=== PATIENT | male | born 1955 | race Hispanic/Latino ===

== ENCOUNTER → 2017-06-25 | Outpatient (CLI) | payer SELFPAY | END | disposition home or self-care (01) | LOC: YCFC.O 08:01 | PROVIDERS: ATTEND Nurse Practitioner Family | DX: E11.9 Type 2 diabetes mellitus without complications (principal); E78.2 Mixed hyperlipidemia ==

== ENCOUNTER → 2017-12-24 | Outpatient (CLI) | payer OTHER | LOC: YCFC.O 08:17 | PROVIDERS: ATTEND Nurse Practitioner Family | DX: E78.00 Pure hypercholesterolemia, unspecified (principal); E11.9 Type 2 diabetes mellitus without complications; I10 Essential (primary) hypertension ==

== ENCOUNTER → 2018-04-19 | Outpatient (CLI) | payer OTHER | LOC: YCFC.O 07:29 | PROVIDERS: ATTEND Nurse Practitioner Family | DX: E11.610 Type 2 diabetes mellitus with diabetic neuropathic arthropathy (principal) ==

== ENCOUNTER → 2018-08-08 | Outpatient (CLI) | payer OTHER | LOC: LAB.O 08:11 | PROVIDERS: ATTEND Nurse Practitioner Family | DX: E11.9 Type 2 diabetes mellitus without complications (principal) ==

== ENCOUNTER → 2019-03-02 | Outpatient (CLI) | payer OTHER | LOC: LAB.O 07:10 | PROVIDERS: ATTEND Nurse Practitioner Family | DX: E11.65 Type 2 diabetes mellitus with hyperglycemia (principal); E78.2 Mixed hyperlipidemia; I10 Essential (primary) hypertension ==

== ENCOUNTER 2019-08-01 09:39 | Observation (INO) | payer OTHER, SELFPAY ==
[2019-08-01] MEDS ORDERED: ONDANSETRON ODT 8 MG TAB SL ONE (10:15)
[2019-08-01] MEDS ORDERED: MORPHINE SULFATE INJ 10 MG/ML VIAL IM ONE ×2 (10:15→10:23)
--- NOTE | 2019-08-01 10:54 | RAD ---
EXAM DESCRIPTION: Ankle,Left 3 Views CLINICAL HISTORY: 64 years, Male, Fall/twisted COMPARISON: None. TECHNIQUE: AP/lateral/oblique of the left ankle FINDINGS: Comminuted intra-articular fracture dislocation of the tibiotalar joint is present with fractures through the posterior tibial plafond and mild displacement of the posterior malleolus fracture fragment. Comminuted fracture of the medial malleolus with central displacement of the distal fracture fragment while the majority/remainder of the distal tibia is dislocated medially. Mild comminuted, displaced fracture mid/distal fibular diaphysis with cortical overriding. Disruption of the distal tibiofibular syndesmosis with distal tibia-fibula joint space widening. Lateral talar dome bony contusion/osteochondral lesion. Moderate ankle joint effusion. The subtalar joint is grossly intact. IMPRESSION: 1. Left ankle pilon fracture and dislocation at the tibiotalar joint as above 2. Left mid/distal fibular diaphysis displaced fracture with disruption of the tibiofibular syndesmosis. 3. Moderate ankle joint effusion. Electronically signed by: Glenn Cervantes DO 08/01/2019 10:53 AM [facility]
--- NOTE | 2019-08-01 11:27 | ED.PDOC ---
History of Present Illness - General Chief Complaint: Lower Extremity Injury Stated Complaint: LEFT ANKLE PAIN POST FALL Time Seen by Provider: 08/01/19 10:14 Source: patient, RN notes reviewed, Vital Signs reviewed, family - daughter Exam Limitations: no limitations, other - History of Present Illness Initial Comments: patient is a 64-year-old male who was walking out of his house this morning and slipped and fell off of the steps. Patient complains of left ankle pain and swelling. Patient was unable to ambulate on the foot after the fall. Patient denies any loss of consciousness, no headache, no chest pain, shortness of breath, nausea, vomiting, diarrhea. She complains of some numbness in the foot. Occurred: just prior to arrival Pain - Lower Extremity: severe: Left Calf, Left Ankle Method of Injury: twisted - slip and fall Improving Factors: cold therapy, immobilization Worsening Factors: movement Allergies/Adverse Reactions: Allergies NO KNOWN ALLERGY Allergy (Verified 08/01/19 10:00) Home Medications: Ambulatory Orders Acetaminophen W/ Codeine [Tylenol W/ CODEINE #3] 1 ea PO Q4H #20 08/01/19 Glyburide 08/01/19 Review of Systems - Review of Systems Constitutional: States: no symptoms reported EENTM: States: no symptoms reported Respiratory: States: no symptoms reported Cardiology: States: no symptoms reported Gastrointestinal/Abdominal: States: no symptoms reported Genitourinary: States: no symptoms reported Musculoskeletal: States: see HPI, joint pain, joint swelling. Denies: back pain Skin: States: no symptoms reported Neurological: States: no symptoms reported Endocrine: States: no symptoms reported Hematologic/Lymphatic: States: no symptoms reported All other Systems: Reviewed and Negative Past Medical History (General) - Patient Medical History Hx Hypertension: Yes Hx Diabetes: Yes Hx Cancer: No Hx Hepatitis C: No Surgical History: no surgical history - Vaccination History Hx Tetanus, Diphtheria Vaccination: No Hx Influenza Vaccination: No Hx Pneumococcal Vaccination: No Immunizations Up to Date: No - Social History Hx Tobacco Use: No Hx Alcohol Use: No Hx Substance Use: No Hx Substance Use Treatment: No Hx Depression: No Family Medical History - Family History Mother Family History: Unknown Physical Exam - Physical Exam General Appearance: Alert, Anxious, Obvious distress, Well Developed, Well Groomed, Well Hydrated, Well Nourished Eyes, Ears, Nose, Throat: PERRL/EOMI, normal ENT inspection, pharynx normal Neck: non-tender, full range of motion, supple, normal inspection Cardiovascular/Respiratory: regular rate, rhythm, no M/R/G, normal peripheral pulses, no JVD, normal breath sounds, no respiratory distress Gastrointestinal/Abdominal: non-tender, no organomegaly, no hernia Back: normal inspection, no CVA tenderness, no vertebral tenderness Thigh/Hip: normal inspection, non-tender, no evidence of injury Leg: normal inspection, non-tender, no evidence of injury, normal ROM Knee: normal inspection, non-tender, no evidence of injury, normal ROM Ankle: bone tenderness, deformity, limited ROM, pain, soft tissue tenderness, swelling Foot: non-tender, no evidence of injury, normal ROM, other - Refill less than 2 seconds. DP pulses 2+. Neuro/Tendon: normal motor functions, responds to pain, sensory deficit - mild numbness to the bottom of the foot. Mental Status: alert, oriented x 3 Skin: normal color, warm/dry Progress - Progress Progress: Differential diagnosis: Fibular fracture, dislocation, trimalleolar fracture, Among others. 08/01/19 13:13 patient's ankle has been reduced. Skin is intact. The foot is slightly cool to the touch but he does have 2+ DP pulses. His Doppler of the DP pulse is triphasic phase waveform. Cap refill is less than 2 seconds. Some numbness along the dorsal surface of the foot, but there is no numbness across the top of the foot, any of the ankle or the posterior aspect of the calf. Patient's pain is well controlled. In long discussion with the orthopedic surgeon, Dr. Hutchins, and with review of the x-rays and all the findings as described above, decision was made for discharge home with follow-up in Dr. Hutchins's clinic for further evaluation and operative repair of the ankle. I discussed the plan of care with the patient and his [id number] and they voice understanding and agreement with the plan of care. Juwan Del Angel M.D. #[id number] - Results/Orders Results/Orders: EXAM DESCRIPTION: Ankle,Left 3 Views CLINICAL HISTORY: 64 years, Male, Fall/twisted COMPARISON: None. TECHNIQUE: AP/lateral/oblique of the left ankle FINDINGS: Comminuted intra-articular fracture dislocation of the tibiotalar joint is present with fractures through the posterior tibial plafond and mild displacement of the posterior malleolus fracture fragment. Comminuted fracture of the medial malleolus with central displacement of the distal fracture fragment while the majority/remainder of the distal tibia is dislocated medially. Mild comminuted, displaced fracture mid/distal fibular diaphysis with cortical overriding. Disruption of the distal tibiofibular syndesmosis with distal tibia-fibula joint space widening. Lateral talar dome bony contusion/osteochondral lesion. Moderate ankle joint effusion. The subtalar joint is grossly intact. IMPRESSION: 1. Left ankle pilon fracture and dislocation at the tibiotalar joint as above 2. Left mid/distal fibular diaphysis displaced fracture with disruption of the tibiofibular syndesmosis. 3. Moderate ankle joint effusion. Electronically signed by: Glenn Cervantes DO 08/01/2019 10:53 AM [employer] EXAM DESCRIPTION: Ankle,Left 3 Views CLINICAL HISTORY: 64 years Male, post reduction COMPARISON: Earlier today Findings: Five views/radiographs Redemonstrated, previously described left ankle pilon fracture and dislocation. Improved alignment of the transverse mid diaphyseal fibular fracture. There is one shaft width lateral displacement of the distal fracture fragment. Redemonstrated comminuted intra-articular distal tibial fracture, with improved alignment. There is persistent widening of the medial ankle mortise. Redemonstrated large posterior malleolar fracture fragment measures 3.2 cm. Medial malleolar fracture fragment measuring 1.4 cm. No new fracture identified. IMPRESSION: Improved alignment of the previously described left ankle fracture- dislocation. Electronically signed by: Silvano Walton MD 08/01/2019 11:47 AM 08/01/19 12:35 IV:Start .ONCE Laboratory Results - last 24 hr 08/01/19 08/01/19 08/01/19 11:18 12:48 12:48 WBC 12.0 H RBC 4.76 Hgb 13.7 L Hct 40.9 L MCV 85.9 MCH 28.7 MCHC 33.4 RDW 15.1 H Plt Count 228 MPV 9.0 Absolute Neuts (auto) 10.30 H Absolute Lymphs (auto) 0.80 L Absolute Monos (auto) 0.80 Absolute Eos (auto) 0.00 Absolute Basos (auto) 0.00 Neutrophils % 86.3 H Lymphocytes % 6.4 L Monocytes % 7.0 Eosinophils % 0.1 L Basophils % 0.2 Sodium 130 L Potassium 3.9 Chloride 100 L Carbon Dioxide 21 Anion Gap 12.9 BUN 18 Creatinine 0.64 BUN/Creatinine Ratio 28.1 H POC Glucose 198 H Random Glucose 205 H Serum Osmolality 268.6 L Calcium 9.1 Total Bilirubin 0.5 AST 23 ALT 16 Alkaline Phosphatase 64 Serum Total Protein 7.4 Albumin 4.3 Globulin 3.1 Albumin/Globulin Ratio 1.4 Lipase 45 Departure - Departure Clinical Impression: Fracture due to fall Closed fracture of ankle Qualifiers: Encounter type: initial encounter Laterality: left Qualified Code(s): S82.892A - Other fracture of left lower leg, initial encounter for closed fracture Trimalleolar fracture of left ankle Qualifiers: Encounter type: initial encounter Fracture type: closed Qualified Code(s): S82.852A - Displaced trimalleolar fracture of left lower leg, initial encounter for closed fracture Time of Disposition: 13:28 Disposition: Discharge to Home or Self Care Condition: Good Departure Forms: ED Discharge - Pt. Copy, Patient Portal Self Enrollment Instructions: Ankle Fracture (DC) Referrals: Uche Hutchins MD [Active Staff] - 1-2 Days Zakiya Garcia NP [Primary Care Provider] - 1-5 Days Prescriptions: Acetaminophen W/ Codeine [Tylenol W/ CODEINE #3] 1 ea PO Q4H #20 Home Medications: Ambulatory Orders Acetaminophen W/ Codeine [Tylenol W/ CODEINE #3] 1 ea PO Q4H #20 08/01/19 Glyburide 08/01/19 Additional Instructions: Keep ankle elevated above your heart. Do not walk on your foot.
--- NOTE | 2019-08-01 11:49 | RAD ---
EXAM DESCRIPTION: Ankle,Left 3 Views CLINICAL HISTORY: 64 years Male, post reduction COMPARISON: Earlier today Findings: Five views/radiographs Redemonstrated, previously described left ankle pilon fracture and dislocation. Improved alignment of the transverse mid diaphyseal fibular fracture. There is one shaft width lateral displacement of the distal fracture fragment. Redemonstrated comminuted intra-articular distal tibial fracture, with improved alignment. There is persistent widening of the medial ankle mortise. Redemonstrated large posterior malleolar fracture fragment measures 3.2 cm. Medial malleolar fracture fragment measuring 1.4 cm. No new fracture identified. IMPRESSION: Improved alignment of the previously described left ankle fracture-dislocation. Electronically signed by: Silvano Walton MD 08/01/2019 11:47 AM [facility]
--- NOTE | 2019-08-01 14:11 | HP ---
SUPERVISING PHYSICIAN: Agustin Salazar M.D. CHIEF COMPLAINT: Left ankle pain with fracture. HISTORY OF PRESENT ILLNESS: Mr. Iyer is a 64 year-old male that presented to the Emergency Room today after he had a same level fall while walking this morning. He slipped and fell down some steps. When he presented to the Emergency Room, he complained of some left ankle pain with swelling and was able to ambulate after the fall. He denied any loss of consciousness, headaches, chest pain, shortness of breath, nausea, vomiting or diarrhea. He did have initially some numbness in the foot on arrival. X-rays of the tibia, fibula and ankle revealed a left ankle fracture with dislocation. Dr. Hutchins, orthopedic surgeon, was consulted and requested the patient be put in a brace, and admitted for pain control and precautions to prevent further swelling with anticipation of doing open reduction and internal fixation of the ankle in the morning. He was placed in observation in stable condition. PAST MEDICAL HISTORY: 1. Hypertension. 2. Diabetes mellitus on oral therapy. 3. Hypercholesterolemia. PAST SURGICAL HISTORY: None listed. HOME MEDICATIONS: 1. Glyburide 5 mg b.i.d. 2. Lisinopril 20 mg daily. 3. Lovastatin 20 mg daily. 4. Metformin 1,000 mg daily. 5. Terbinafine 250 mg daily. ALLERGIES: NO KNOWN DRUG ALLERGIES. FAMILY HISTORY: Mother at age 60 from colon cancer. Father still alive with hypertension. He has multiple brothers and sisters that all have diabetes. 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 He lives in [place]. He is . He has 5 children. He has never smoked. Does not drink alcohol or use illicit drugs. REVIEW OF SYSTEMS: CONSTITUTIONAL: Denies any fevers, chills, general malaise, body aches. HEENT: Denies any ear aches, sore throat, nasal congestion, headaches, vision changes. RESPIRATORY: Denies any coughing, wheezing or shortness of breath. CARDIOVASCULAR: Denies any chest pains, palpitations or syncopal episodes. GASTROINTESTINAL: Denies any nausea, vomiting, diarrhea, constipation or abdominal pains. GENITOURINARY: Denies any dysuria, hematuria or polyuria. MUSCULOSKELETAL: As noted in History of Present Illness. NEUROLOGIC: Denies any headaches, vision changes, syncopal episodes, ataxia, seizures or other focal neurological deficits. PHYSICAL EXAMINATION: VITAL SIGNS: Temperature 97, pulse 68, blood pressure 124/75, respirations 18, satting 98% on room air. Admission weight is 74 kg. GENERAL: The patient is resting comfortably. Appears to be in no acute distress. He is alert. HEENT: Tympanic membranes are clear bilaterally. Oropharynx is pink and moist without any lesions. NECK: Supple, non-tender. Full range of motion. No jugular venous distention. CHEST: Lungs are clear to auscultation bilaterally without any rhonchi, wheezing or rales. CARDIOVASCULAR: Regular rate and rhythm without appreciable murmurs, gallops, or rubs. ABDOMEN: Obese but soft, non-tender. Positive bowel sounds. EXTREMITIES: Left lower extremity has a posterior brace and Reinaldo bandage in place. SKIN: Warm, pink and dry. Pulses were faint but palpable. No reported paresthesias. NEUROLOGIC: Cranial nerves II-XII are grossly intact. Facial features were symmetrical. He is alert and oriented times three. LABORATORY: White count 12,000, hemoglobin 13.7, hematocrit 40.9, platelet count 228,000. Differential does show a left shift. Chemistries show a mildly low sodium at 130 with potassium 3.9, anion gap and BUN are normal, creatinine 0.64. Blood sugars were initially 198. Liver functions were all within normal limits. Lipase was normal at 45. Urinalysis was pending. RADIOLOGY: Ankle x-ray and tibia and fibula x-rays showed a left ankle pilon fracture and dislocation at the tibiotalar joint with a left mid distal fibular diaphysis displaced fracture with disruption of the tibiofibular syndesmosis and moderate ankle joint effusion. ASSESSMENT: 1. Bimalleolar fracture and left fibular fracture status post same level fall. 2. Hypertension. 3. Diabetes mellitus. 4. Hypercholesterolemia. PLAN: Mr. Iyer is going to be placed in observation for an orthopedic surgical consultation with planned open reduction and internal fixation of the fractures of the left ankle and tibia in the morning. Will continue preoperative workup. He has been seen by Anesthesia as well. Will have him on insulin sliding scale per protocol. His home medications in he computer are still awaiting verification and update, listed above is from a clinic chart. He will be on deep venous thrombosis prophylaxis postoperatively as per protocol. He will be on bedrest tonight to keep the left leg elevated to decrease swelling in efforts to be able to do surgery in the morning, however if he is not able to do surgery due to the fact that the swelling has increased, he may need to discharge home and return back for further management, but will reassess in the morning with Dr. Hutchins and make ultimate decision on surgical intervention. Until we can transition him to outpatient management will continue to monitor and treat as needed. #[id number] [facility]
[2019-08-01] MEDS ORDERED: SODIUM CHLORIDE 0.9% (FLUSH) 10 ML SYG IV PRN (14:38)
[2019-08-01] MEDS ORDERED: ONDANSETRON INJ 4 MG/2 ML VIAL IV PRN (14:38)
[2019-08-01] MEDS ORDERED: ALUM & MAG HYDROX-SIMETHICONE 30 ML UD PO PRN (14:38)
[2019-08-01] MEDS ORDERED: MAGNESIUM HYDROXIDE 30 ML UD PO PRN (14:38)
[2019-08-01] MEDS ORDERED: ACETAMINOPHEN 325 MG TAB PO PRN (14:38)
[2019-08-01] MEDS ORDERED: GLUCAGON INJ 1 MG VIAL SUBCU PRN (14:39)
[2019-08-01] MEDS ORDERED: DEXTROSE 10% 500ML IVPB PRN (14:39)
[2019-08-01] MEDS ORDERED: IV SET AND CAP CHANGE INJ INJ SCH (15:00)
[2019-08-01] MEDS: SODIUM CHLORIDE 0.9% 1000ML 1,000 ML IVS PRN (15:05)
[2019-08-01] MEDS: INSULIN LISPRO 100 UNITS/ML PEN SUBCU SCH ×2 (16:56→20:50)
[2019-08-01] MEDS: MORPHINE SULFATE INJ 10 MG/ML VIAL IV PRN ×2 (19:16→23:09)
--- NOTE | 2019-08-01 20:48 | CT ---
EXAM DESCRIPTION: CT Lower Extremity CLINICAL HISTORY: 64 years Male fracture to left ankle TECHNIQUE: Axial noncontrast images acquired through the left ankle. Coronal and sagittal reformatted images also provided. This CT exam was performed according to our departmental dose-optimization program, which includes one or more of the following dose reduction techniques: automated exposure control, adjustment of the mA and/or kV according to patient size, and/or use of iterative reconstruction technique. COMPARISON: Correlation is made with the radiographs obtained earlier the same day. FINDINGS: Again seen is an acute fracture of the left mid fibular diaphysis with less than one shaft-width of anterior and lateral displacement. There is an acute fracture through the base of the medial malleolus with 8 mm of lateral displacement. The distal fracture fragment continues to articulate with the talar dome, which articulates with the lateral malleolus. The tibial plafond is displaced medially relative to the talus. There is an acute, slightly comminuted, intra-articular posterior malleolar fracture demonstrating 9 mm of lateral displacement and 7 mm of posterior displacement. There are a few tiny ossific intra-articular fracture fragments in the ankle joint. There is a well-corticated osteophyte along the anterior margin of the tibial plafond. There is no complete ankle dislocation. No other visualized fracture. There are mild focal degenerative changes at the medial and lateral corners of the talar dome. Diffuse surrounding soft tissue swelling without soft tissue gas or foreign body. IMPRESSION: Acute, displaced, medial and posterior malleolar fractures on the left. Acute fracture of the left mid fibular diaphysis. Lateral subluxation at the ankle joint without complete dislocation. Tiny ossific intra-articular bodies. Electronically signed by: Saba Ashley MD 08/01/2019 8:47 PM [facility]
[2019-08-02] MEDS: SODIUM CHLORIDE 0.9% 1000ML 1,000 ML IVS PRN (02:01)
[2019-08-02] MEDS ORDERED: raNITIdine HCL INJ 25 MG/ML VIAL ONE (07:00)
[2019-08-02] MEDS ORDERED: LIDOCAINE 1% 10 ML VIAL INJ ONE (07:00)
[2019-08-02] MEDS ORDERED: PROPOFOL 200 MG/20 ML VIAL IV ONE (07:00)
[2019-08-02] MEDS ORDERED: DEXAMETHASONE INJ 10 MG/ML VIAL ONE (07:00)
[2019-08-02] MEDS: INSULIN LISPRO 100 UNITS/ML PEN SUBCU SCH ×2 (07:45→12:40)
[2019-08-02] MEDS: MORPHINE SULFATE INJ 10 MG/ML VIAL IV PRN (08:42)
[2019-08-02] MEDS ORDERED: SODIUM CHLORIDE 0.9% 250ML 250 ML ONE (09:00)
[2019-08-02] MEDS ORDERED: VANCOMYCIN HCL INJ 1,000 MG VIAL IVPB ONE ×3 (09:01→09:50)
[2019-08-02] MEDS ORDERED: SODIUM CHLORIDE 0.9% 50ML 50 ML ONE (09:01)
[2019-08-02] MEDS ORDERED: ceFAZolin SODIUM 1 GM VIAL ONE ×2 (09:01→09:33)
[2019-08-02] MEDS ORDERED: VANCOMYCIN HCL INJ 1,000 MG in SODIUM CHLORIDE 0.9% 250ML 250 ML IVPB ONE (09:12)
[2019-08-02] MEDS ORDERED: ceFAZolin SODIUM 2 GM in SODIUM CHLORIDE 0.9% 100ML 100 ML IVPB ONE (09:30)
[2019-08-02] MEDS ORDERED: HYDROmorphone HCL INJ 2 MG/ML VIAL ONE ×2 (09:32→12:55)
[2019-08-02] MEDS ORDERED: MIDAZOLAM INJ 2 MG/2 ML VIAL ONE (09:32)
[2019-08-02] MEDS ORDERED: KETAMINE HCL 100 MG/ML VIAL ONE (09:32)
[2019-08-02] MEDS ORDERED: BUPIVACAINE 0.5% 30 ML VIAL INJ ONE ×2 (09:34→09:50)
[2019-08-02] MEDS ORDERED: BUPIVACAINE LIPOSOME 13.3 MG/ML VIAL INJ ONE ×2 (09:34→09:50)
[2019-08-02] MEDS ORDERED: ceFAZolin SODIUM 1 GM VIAL INJ ONE (09:50)
[2019-08-02] MEDS ORDERED: LEVALBUTEROL NEBS 1.25 MG/3 ML VIAL NEB ONE (11:23)
[2019-08-02] MEDS ORDERED: ELECTROLYTE-A 1,000 ML IVS ONE (11:35)
[2019-08-02] MEDS ORDERED: HYDROmorphone HCL INJ 2 MG/ML VIAL IV ONE (13:00)
--- NOTE | 2019-08-02 13:04 | RAD ---
EXAM DESCRIPTION: Left ankle, 3 radiographs CLINICAL HISTORY: Ankle fracture fixation FINDINGS/ IMPRESSION: Ankle mortise is symmetric. Tibiofibular syndesmosis and medial malleolus screws. Good anatomic reduction. Mild displacement of posterior tibial malleolar fracture. Partially visualized plate and screw fixation of comminuted mid diaphysis fibular fracture Electronically signed by: Agustin Rodriguez MD 08/02/2019 1:03 PM [facility]
--- NOTE | 2019-08-02 13:05 | RAD ---
EXAM DESCRIPTION: Tibia/Fibula,Left CLINICAL HISTORY: POSTOP COMPARISON: 01 August 2019 TECHNIQUE: AP and lateral left FINDINGS: The exam reveals a plate and screws bridging a fracture the midshaft of the fibula. Screw fixation of the medial malleolar fracture and the ankle mortise are also observed. The fractures are held in near-anatomic alignment. IMPRESSION: ORIF left mid fibular fracture, medial malleolar fracture and ankle mortise repair Electronically signed by: Kehinde Dumont MD 08/02/2019 1:04 PM [facility]
[2019-08-02] MEDS ORDERED: HYDROcodone 5MG/APAP 325MG 1 EA TAB ONE (13:07)
[2019-08-02 13:32] VITALS: O2SAT 95
--- NOTE | 2019-08-02 13:47 | RAD ---
PROVIDED CLINICAL HISTORY/REASON FOR EXAM: ORIF LEFT ANKLE Findings/impression: Five intraoperative fluoroscopic images of a left ankle fracture fixation Dose: 4.34 mGy Time: 115.2 seconds Electronically signed by: Silvano Walton MD 08/02/2019 1:45 PM [facility]
[2019-08-02 14:52] VITALS: BP 137/79; TEMP 98.6
--- NOTE | 2019-08-04 09:25 | OP ---
PREOPERATIVE DIAGNOSIS: 1. Trimalleolar ankle fracture. POSTOPERATIVE DIAGNOSIS: 1. Trimalleolar ankle fracture. PROCEDURE: 1. Open reduction internal fixation of left ankle and left proximal fibula. SURGEON: Uche Hutchins MD. CROP SUPERVISOR: Deon Benítez CST, SA-C ANESTHESIA: General anesthesia. COMPLICATIONS: None. FINDINGS: 1. Fracture of the shaft of the fibula. 2. Medial malleolus fracture. 3. Disruption of the syndesmosis. INDICATION: Mr. Iyer has a history of a twisting injury on the day of presentation. He was seen in the Emergency Room and admitted. I was consulted and after discussing the risks, benefits and alternatives to operative therapy with Mr. Iyer, informed consent was obtained for ORIF. PROCEDURE: The patient was brought to the Operating Room and placed in supine position. General anesthesia was induced. The patient's leg was sterilely prepped and draped. Following prepping and draping, the syndesmosis was reduced and 2 screws were placed from lateral medial. The syndesmosis at that point was stable. An incision was made on the medial aspect overlying the medial malleolus. On reduction of the medial malleolus, 2 cannulated 4.0 mm screws were placed. Attention was then focused on the fibular shaft fracture. An incision was made centered on the fracture and dissection was carried down to the fracture. The fracture was reduced under fluoroscopic imaging and direct imaging. After reduction had been confirmed, a 6-hole plate was placed across the fracture site. The wounds were thoroughly irrigated and closed with running and interrupted subcuticular stitches as well as Nylon. Sterile dressings were placed. The patient was awoken from anesthesia and taken to Recovery. POSTOPERATIVE PLAN: He will be non-weightbearing until healing of the fracture. #[id number] [facility]
--- NOTE | 2019-08-07 09:59 | DS ---
SUPERVISING PHYSICIAN: Agustin Salazar MD DISCHARGE DIAGNOSIS: 1. Bimalleolar fracture and left fibular fracture status post same level fall. His ankle was repaired today by Dr. Uche Hutchins, orthopedic surgeon. 2. Hypertension. 3. Diabetes mellitus. 4. Hypercholesterolemia. HISTORY OF PRESENT ILLNESS: This is a 64-year-old male that presented to the Emergency Room on the date of admission after a same level fall while walking. He slipped and fell down some steps. When he came to the Emergency Room, he complained of some left ankle pain with swelling and was able to ambulate after the fall. He denied any loss of consciousness, headaches, chest pain, shortness of breath, nausea, vomiting or diarrhea. He did have initially some numbness in the foot on arrival. X-rays of the tibia, fibula and ankle revealed a left ankle fracture with dislocation. Dr. Hutchins, orthopedic surgeon, was consulted and requested the patient be put in a brace and admitted for pain control and precautions to prevent further swelling and planned to do surgery the next morning. He was placed in observation in stable condition. HOSPITAL COURSE: The patient was placed in observation for an orthopedic surgical consultation. There was a plan to do an open reduction internal fixation of the fracture of his left ankle and tibia the next morning. Preoperative workup was done. He was made NPO at midnight. He was also put on bedrest and his left leg was elevated. His home medications were restarted. He went to surgery on the morning of discharge. He had no intraoperative complications and went through the normal postoperative recovery. He was discharged from the Recovery Room today. LABORATORY: WBCs 12,000, hemoglobin 13.7, hematocrit 40.9. Blood sugars ran between 159 and 238. His initial sodium was 130 and on date of discharge was 134. The remainder of his electrolytes were within normal limits. Liver function tests were normal. RADIOLOGY: His radiology reports are as per history of present illness. All other radiology reports are per the EMR. DISCHARGE PLAN: The patient will be discharged home in stable condition. He is to resume his previous diet. His activity level will be as per Dr. Hutchins's discharge instructions. He is to followup with Dr. Hutchins on 08/04/19 at 9:30 AM and SUBHASH Benavides, on 08/08/19 at 2:15 PM. He is to return to the hospital or followup with Dr. Hutchins for any problems or complications. DISCHARGE MEDICATIONS: 1. Glyburide. #[id number] [facility]
== END 2019-08-02 15:10 | disposition home or self-care (01) ==
LOC: ER 09:39 → MS 14:09
PROVIDERS: ADMIT Nurse Practitioner Family; ATTEND Nurse Practitioner Acute Care
DX: S82.852A Displaced trimalleolar fracture of left lower leg, initial encounter for closed fracture (principal); S93.432A Sprain of tibiofibular ligament of left ankle, initial encounter; E11.9 Type 2 diabetes mellitus without complications; I10 Essential (primary) hypertension; E78.00 Pure hypercholesterolemia, unspecified; I45.10 Unspecified right bundle-branch block; W01.0XXA Fall on same level from slipping, tripping and stumbling without subsequent striking against object, initial encounter; Y93.89 Activity, other specified; Y92.008 Other place in unspecified non-institutional (private) residence as the place of occurrence of the external cause; Z79.84 Long term (current) use of oral hypoglycemic drugs; Z79.899 Other long term (current) drug therapy; Z80.0 Family history of malignant neoplasm of digestive organs; Z82.49 Family history of ischemic heart disease and other diseases of the circulatory system; Z83.3 Family history of diabetes mellitus
CPT/HCPCS: 27822; 01480; 27818; 96361; 96366; 96365; 96368; 96375 ×2; 96376 ×2; 96372; C1713 ×7; J0690 ×3; J1170 ×3; J2270 ×4; J3490 ×3; J7030 ×2; A4216; J7050; J3370 ×3; J1100; J2250; J2780; J7614; 80048; 80053; 82948 ×6; 36415; 85025; 83690; 36416 ×5; 76000; 73590; 73610 ×3; 73700; 94760 ×2; 97116; G8978; G8979; 97162; 99285; 93005; G0378

== ENCOUNTER → 2019-08-10 | Outpatient (CLI) | payer SELFPAY ==
--- NOTE | 2019-08-11 07:51 | RAD ---
EXAM DESCRIPTION: Ankle,Left 3 Views CLINICAL HISTORY: 64 years, Male, FRACTURE OF ANKLE LEFT COMPARISON: Previous study August 02, 2019 TECHNIQUE: AP/lateral/oblique of the left ankle FINDINGS: Orthopedic hardware is seen in the ankle and in the mid to distal fibula stabilizing fractures in these areas. There is mild soft tissue swelling at the medial ankle joint. No definite change in alignment since previous study. Intact proximal metatarsals. Intact dome of the talus. Lateral view shows no evidence of fracture of the body of the talus or calcaneus. Mild dorsal and plantar calcaneal spurring. Lateral view shows dorsal fragment of the distal tibia with 3 mm proximal displacement. Small bone fragment is seen posterior to the stabilized fibular diaphyseal fracture. Normal alignment at the ankle on the frontal and mortise views. IMPRESSION: Orthopedic hardware stabilizing left fibular and medial malleolar fractures. Electronically signed by: Channing Ge MD 08/11/2019 7:49 AM [facility]
== END ==
LOC: RAD 11:34
PROVIDERS: ATTEND Orthopaedic Surgery
DX: S82.92XD Unspecified fracture of left lower leg, subsequent encounter for closed fracture with routine healing (principal); Z98.890 Other specified postprocedural states

== ENCOUNTER → 2019-08-14 | Outpatient (CLI) | payer SELFPAY | LOC: YCFC.O 09:09 | PROVIDERS: ATTEND Nurse Practitioner | DX: E11.65 Type 2 diabetes mellitus with hyperglycemia (principal); E78.5 Hyperlipidemia, unspecified; I10 Essential (primary) hypertension ==

== ENCOUNTER → 2019-09-11 | Outpatient (CLI) | payer SELFPAY ==
--- NOTE | 2019-09-11 12:36 | RAD ---
EXAM DESCRIPTION: Ankle,Left 3 Views: CR/DR/XR CLINICAL HISTORY: 64 years Male FRACTURE OF ANKLE LEFT COMPARISON: ORIF left fibula and ankle fracture July 2019. TECHNIQUE: 3 VIEWS AP. Lateral. Oblique. Left lower leg and left ankle. FINDINGS: ORIF for comminuted fracture distal mid left fibula. Estimated position of the hardware with near-anatomic alignment. 2 screws introduced laterally with fixation of the distal fibula and tibia. 2 screws, superior- oblique course through the prior medial malleolar fracture. Posterior malleolar fracture fragment is again visualized. Decreased bone density in the left ankle. Ankle mortise is congruent. IMPRESSION: Stable hardware and fracture components mid distal left fibular diaphysis and medial and posterior malleolus. Mortise is congruent. Electronically signed by: Deon Lyn MD 09/11/2019 12:35 PM [facility]
== END ==
LOC: RAD 08:35
PROVIDERS: ATTEND Orthopaedic Surgery
DX: S82.852D Displaced trimalleolar fracture of left lower leg, subsequent encounter for closed fracture with routine healing (principal); Z98.890 Other specified postprocedural states

== ENCOUNTER → 2019-10-12 | Outpatient (CLI) | payer SELFPAY ==
--- NOTE | 2019-10-12 13:59 | RAD ---
EXAM DESCRIPTION: Left ankle, 3 radiographs CLINICAL HISTORY: Fracture fixation follow-up FINDINGS/ IMPRESSION: Plate and screw fixation of the distal fibular diaphysis. No hardware fracture, displacement or periscrew osteolysis. Syndesmotic screws and screws traversing the medial malleolus. No periscrew osteolysis or hardware displacement Comparison to 09/11/2019, no significant interval change. Osteopenia of the talus apparently disuse. No deformity of the talar dome No acute bony abnormality Electronically signed by: Agustin Rodriguez MD 10/12/2019 1:57 PM [facility]
== END ==
LOC: RAD 08:17
PROVIDERS: ATTEND Orthopaedic Surgery
DX: S82.842D Displaced bimalleolar fracture of left lower leg, subsequent encounter for closed fracture with routine healing (principal); Z98.890 Other specified postprocedural states; M85.872 Other specified disorders of bone density and structure, left ankle and foot

== ENCOUNTER → 2019-12-11 | Outpatient (CLI) | payer SELFPAY ==
--- NOTE | 2019-12-11 10:16 | RAD ---
EXAM DESCRIPTION: Ankle,Left 3 Views CLINICAL HISTORY: 64 years Male, FX COMPARISON: Left ankle radiographs 11/08/2019 TECHNIQUE: 3 view radiographs of the left ankle. IMPRESSION: Stable postoperative changes of lateral screw-plate fixation of the mid fibula and orthopedic screws traversing the medial malleolus and the distal syndesmosis. No hardware complication. There is increased sclerosis about the mid-distal fibular fracture but with fracture lines remaining visible. Stable partially united and posteriorly displacement of posterior malleolar fracture. Ankle mortise appears maintained on the tibial plafond and lateral gutter. Unchanged tibiotalar joint effusion. No radiopaque foreign body. Electronically signed by: Job Vega MD 12/11/2019 10:14 AM [facility]T
== END ==
LOC: RAD 09:04
PROVIDERS: ATTEND Orthopaedic Surgery
DX: S82.842D Displaced bimalleolar fracture of left lower leg, subsequent encounter for closed fracture with routine healing (principal); M25.472 Effusion, left ankle; Z98.890 Other specified postprocedural states

== ENCOUNTER → 2020-05-10 | Outpatient (CLI) | payer SELFPAY | LOC: LAB.O 08:24 | PROVIDERS: ATTEND Family Medicine | DX: E11.65 Type 2 diabetes mellitus with hyperglycemia (principal) ==